=== PATIENT | male | born 1965 | race Caucasian/White ===

== ENCOUNTER 2023-01-03 12:58 | Emergency (ER) | payer OTHER ==
[~2023-01-03] VITALS: Ht 177.8 cm; Wt 101.2 kg
[2023-01-03 13:51] VITALS: BP 131/59
[2023-01-03 16:51] LABS: BASOPHILS # (AUTO) 0.1 K/uL (0.00-0.22); BASOPHILS % (AUTO) 0.5 % (0.0-2.0); EOSINOPHILS # (AUTO) 0.4 K/uL (0-0.4); EOSINOPHILS % (AUTO) 2.6 % (0.0-4.0); HEMATOCRIT 22.5 % (36-52); HEMOGLOBIN 7.1 g/dL (12.0-18.0); LYMPHOCYTES # (AUTO) 0.7 K/uL (2.0-11.5); LYMPHOCYTES % (AUTO) 5.4 % (20.5-51.1); MEAN CORPUSCULAR HEMOGLOBIN 28 pg (27-31); MEAN CORPUSCULAR HGB CONC 32 g/dL (33-37); MEAN CORPUSCULAR VOLUME 86.9 fL (80-94); MONOCYTES % (AUTO) 7.6 % (1.7-9.3); NEUTROPHILS # (AUTO) 11.4 K/uL (1.8-7.7); NEUTROPHILS % (AUTO) 83.9 % (42.2-75.2); PLATELET COUNT (AUTO) 286 K/uL (140-450); RED BLOOD CELL COUNT(AUTO) 2.59 MIL/uL (4.20-6.10); RED CELL DISTRIBUTION WIDTH 17.2 % (11.6-13.7); WHITE BLOOD COUNT (AUTO) 13.6 K/uL (4.8-10.8)
[2023-01-03 17:04] LABS: ALBUMIN 3.2 g/dL (3.4-5.0); ANION GAP 17.7 (8-16); CARBON DIOXIDE 27.8 mmol/L (21-32); POTASSIUM 5.5 mmol/L (3.5-5.1); TOTAL BILIRUBIN 0.3 mg/dL (0.0-1.0)
[2023-01-03 17:08] LABS: CREATININE 10.3 mg/dL (0.6-1.3)
--- NOTE | 2023-01-03 17:17 | NUR ---
TO BED 3 VIA W/C NO ACUTE DISTRESS
[2023-01-03 17:25] LABS: BILIRUBIN,URINE NEGATIVE (NEGATIVE); BLOOD, URINE 1+ (NEGATIVE); COLOR,URINE YELLOW (YELLOW); LEUKOCYTE ESTERASE ,URINE 1+ (NEGATIVE); NITRITE, URINE NEGATIVE (NEGATIVE); UGLUCOSE NEGATIVE (NEGATIVE)
--- NOTE | 2023-01-03 18:01 | NUR ---
57 YO MALE BIBRosita PRESENTS TO THE ED. PATIENT COMPLAINS OF BURNING UPON URINATION. PATIENT ON DILAYSIS ON TTS. PATIENT COMPLAINTS OF PAIN TO SHARP PELVIC PAIN. 03/24 GOING ON FOR 3 WEEKS. PMH: DIABETSES, HTN, KIDNEY DISEASE. DENIES ANY ALLERGIES
[2023-01-03 18:13] LABS: APPEARANCE,URINE HAZY (CLEAR)
[2023-01-03] MEDS ORDERED: cefTRIAXone 1,000 MG in LIDOCAINE MPF 1% 2.1 ML IM ONE (19:05)
--- NOTE | 2023-01-03 19:45 | NUR ---
Patient resting in bed, A/Ox4, chest rise and falls symmetrical, no s/s of distress, patient on monitor.
[2023-01-03] MEDS ORDERED: cefTRIAXone 1,000 MG VIAL ONE (20:03)
[2023-01-03] MEDS ORDERED: LIDOCAINE MPF 1% 5 ML ONE (20:03)
[2023-01-03] MEDS ORDERED: KETOROLAC 60 MG/2 ML VIAL IM ONE ×2 (20:05→20:07)
[2023-01-03] MEDS ORDERED: PHEN-1877 PO (20:05)
[2023-01-03] MEDS ORDERED: NITR100C7 PO (20:05)
[2023-01-03 20:20] VITALS: BP_SYST 127
--- NOTE | 2023-01-03 20:20 | NUR ---
Patient discharged with v/s stable. Written and verbal after care instructions given and explained. Patient alert, oriented and verbalized understanding of instructions. [g ED.DCMODE] with [g ED.D/CMODE]. All questions addressed prior to discharge. ID band removed. Patient advised to follow up with PMD. Rx of [] given. Patient educated on indication of medication including possible reaction and side effects. Opportunity to ask questions provided and answered.
[2023-01-03 20:55] VITALS: BP_DIAS 68
== END 2023-01-03 20:20 | disposition home or self-care (01) ==
LOC: MED 12:58
DX: N39.0 Urinary tract infection, site not specified (principal); E11.22 Type 2 diabetes mellitus with diabetic chronic kidney disease; I12.0 Hypertensive chronic kidney disease with stage 5 chronic kidney disease or end stage renal disease; N18.6 End stage renal disease; Z99.2 Dependence on renal dialysis; Z98.890 Other specified postprocedural states; Z79.899 Other long term (current) drug therapy; Z79.2 Long term (current) use of antibiotics
CPT/HCPCS: 36415; 80053; 81001; 85025; 87086; 96372; 99284; J0696; J1885; J2001